=== PATIENT | female | born 1975 | race Caucasian/White ===

== ENCOUNTER → 2017-01-23 | Outpatient (CLI) | payer BC ==
--- NOTE | 2017-01-25 08:29 | MM ---
Reason for exam: screening (asymptomatic). Last mammogram was performed 3 years and 8 months ago. History: Left U/S Cancelled VAD Biopsy of both breasts, June 09, 2013. Physical Findings: A clinical breast exam by your physician is recommended on an annual basis and results should be correlated with mammographic findings. MG Screening Mammo w CAD Bilateral CC and MLO view(s) were taken. Prior study comparison: May 22, 2013, CAD bilateral diagnostic mammogram. December 27, 2011, bilateral digital screening mammo w/CAD. The breast tissue is extremely dense which could obscure a lesion on mammography. No significant changes when compared with prior studies. ASSESSMENT: Negative, BI-RAD 1 RECOMMENDATION: Routine screening mammogram of both breasts in 1 year.
== END | disposition home or self-care (01) ==
LOC: RADMAMWWP 15:51
PROVIDERS: ATTEND Obstetrics & Gynecology
DX: Z12.31 Encounter for screening mammogram for malignant neoplasm of breast (principal)

== ENCOUNTER → 2018-02-27 | Outpatient (CLI) | payer BC ==
--- NOTE | 2018-03-03 08:15 | MM ---
Reason for exam: screening (asymptomatic). Last mammogram was performed 1 year and 1 month ago. History: Left U/S Cancelled VAD Biopsy of both breasts, June 09, 2013. Physical Findings: A clinical breast exam by your physician is recommended on an annual basis and results should be correlated with mammographic findings. MG Screening Mammo w CAD Bilateral CC, MLO, and XCCL view(s) were taken. Prior study comparison: January 23, 2017, bilateral MG screening mammo w CAD. May 22, 2013, CAD bilateral diagnostic mammogram. The breast tissue is extremely dense which could obscure a lesion on mammography. There is no discrete abnormality. ASSESSMENT: Negative, BI-RAD 1 RECOMMENDATION: Routine screening mammogram of both breasts in 1 year.
== END | disposition home or self-care (01) ==
LOC: RADMAMWWP 08:03
PROVIDERS: ATTEND Obstetrics & Gynecology
DX: Z12.31 Encounter for screening mammogram for malignant neoplasm of breast (principal)
CPT/HCPCS: 77067

== ENCOUNTER → 2019-06-23 | Outpatient (CLI) | payer BC ==
--- NOTE | 2019-06-24 11:13 | MM ---
Reason for exam: screening (asymptomatic). Last mammogram was performed 1 year and 4 months ago. History: Left U/S Cancelled VAD Biopsy of both breasts, June 09, 2013. Physical Findings: A clinical breast exam by your physician is recommended on an annual basis and results should be correlated with mammographic findings. MG 3D Screening Mammo W/Cad Bilateral CC and MLO view(s) were taken. Prior study comparison: February 27, 2018, bilateral MG screening mammo w CAD. January 23, 2017, bilateral MG screening mammo w CAD. The breast tissue is extremely dense which could obscure a lesion on mammography. There is no discrete abnormality. ASSESSMENT: Negative, BI-RAD 1 RECOMMENDATION: Routine screening mammogram of both breasts in 1 year.
== END | disposition home or self-care (01) ==
LOC: RADMAMWWP 08:39
PROVIDERS: ATTEND Obstetrics & Gynecology
DX: Z12.31 Encounter for screening mammogram for malignant neoplasm of breast (principal)
CPT/HCPCS: 77063; 77067

== ENCOUNTER → 2021-02-02 | Outpatient (CLI) | payer BC ==
--- NOTE | 2021-02-03 09:06 | MM ---
Reason for exam: screening (asymptomatic). Last mammogram was performed 1 year and 7 months ago. History: Left U/S Cancelled VAD Biopsy of both breasts, June 09, 2013. Cyst aspiration of the left breast, 2000. Physical Findings: A clinical breast exam by your physician is recommended on an annual basis and results should be correlated with mammographic findings. MG 3D Screening Mammo W/Cad Bilateral CC and MLO view(s) were taken. Prior study comparison: June 23, 2019, bilateral MG 3d screening mammo w/cad. February 27, 2018, bilateral MG screening mammo w CAD. The breast tissue is extremely dense which could obscure a lesion on mammography. There is no discrete abnormality. No significant changes when compared with prior studies. ASSESSMENT: Negative, BI-RAD 1 RECOMMENDATION: Routine screening mammogram of both breasts in 1 year.
== END | disposition home or self-care (01) ==
LOC: RADMAMWWP 12:24
PROVIDERS: ATTEND Obstetrics & Gynecology
DX: Z12.31 Encounter for screening mammogram for malignant neoplasm of breast (principal)
CPT/HCPCS: 77063; 77067

== ENCOUNTER → 2021-12-28 | Outpatient (CLI) | payer BC ==
--- NOTE | 2021-12-28 12:44 | XR ---
Lumbar spine HISTORY: Chronic low back pain 3 views the lumbar spine Lumbar vertebral bodies show preserved height, alignment, bone mineralization. There is mild multilev el spondylosis. Suspect L5 is sacralized, there is loss of disc height greatest at L4-5, L2-3 and L1- 2. Sclerosis is present in the posterior elements of the lower lumbar spine. Multilevel Schmorl's nod e formation is suspected. IMPRESSION: Degenerative disc disease and congenital anomaly, facet arthropathy.
== END | disposition home or self-care (01) ==
LOC: RADXRMAIN 11:51
PROVIDERS: ATTEND Family Medicine
DX: M51.36 Other intervertebral disc degeneration, lumbar region (principal); M47.816 Spondylosis without myelopathy or radiculopathy, lumbar region; Q76.49 Other congenital malformations of spine, not associated with scoliosis
CPT/HCPCS: 72100

== ENCOUNTER → 2022-10-11 | Outpatient (CLI) | payer BC ==
--- NOTE | 2022-10-11 10:25 | US ---
EXAMINATION TYPE: US abdomen complete DATE OF EXAM: 10/11/2022 COMPARISON: None CLINICAL HISTORY: R10.00 RUQ PAIN. RUQ pain per patient. TECHNIQUE: Multiple sonographic images of the abdomen are obtained. FINDINGS: EXAM MEASUREMENTS: Liver Length: 15.8 cm Gallbladder Wall: 0.1 cm CBD: 0.5 cm Spleen: 8.6 cm Right Kidney: 11.4 x 5.2 x 3.8 cm Left Kidney: 11.4 x 4.1 x 4.9 cm Pancreas: Tail obscured by overlying bowel gas Liver: wnl Gallbladder: wnl Evidence for sonographic Loyd's sign: neg CBD: wnl Spleen: wnl Right Kidney: No hydronephrosis or masses seen Left Kidney: No hydronephrosis or masses seen Upper IVC: wnl Abd Aorta: No AAA visualized at time of scan The liver is homogenous. The intrahepatic portion of the IVC and proximal abdominal aorta are within normal limits. There is no evidence of cholelithiasis. Common bile duct is unremarkable. The visu alized portions of the pancreas are homogenous. The spleen is unremarkable. Kidneys are symmetric a nd free of hydronephrosis. No renal lesions are seen. IMPRESSION: No evidence for acute process.
--- NOTE | 2022-10-11 14:25 | MM ---
Reason for Exam: Screening (asymptomatic). Last mammogram was performed 1 year(s) and 9 month(s) ago. Patient History: Menarche at age 17. First Full-Term at age 28. Currently using Hormonal Contraceptives, for 19 years. 2000, Cyst Aspiration on the Left side. 06/09/2013, Bilateral Left U/S Cancelled VAD Biopsy. Last menstrual period: 09/06/2022 Risk Values: Julee 5 year model risk: 0.8%. NCI Lifetime model risk: 9.7%. Prior Study Comparison: 02/27/2018 Bilateral Screening Mammogram, [facility]. 06/23/2019 Bilateral Screening Mammogram, [facility]. 02/02/2021 Bilateral Screening Mammogram, [facility]. Tissue Density: The breast tissue is extremely dense which could obscure a lesion on mammography. Findings: Analyzed By CAD. Benign-appearing bilateral axillary lymph nodes are redemonstrated. Occasional scattered tiny punctate calcification throughout the right breast is noted. Slightly more performed and indistinct grouped calcifications in the middle to posterior depth central right breast on CC view only warrant follow-up. Overall Assessment: Incomplete: need additional imaging evaluation, BI-RAD 0 Management: Special View Mammogram of the right breast. Return for spot magnification views right breast and true lateral view. Electronically signed and approved by: Raphael Baker M.D.
== END | disposition home or self-care (01) ==
LOC: RADMAMWWP 08:31
PROVIDERS: ATTEND Family Medicine
DX: Z12.31 Encounter for screening mammogram for malignant neoplasm of breast (principal); R10.11 Right upper quadrant pain
CPT/HCPCS: 76700; 77063; 77067

== ENCOUNTER → 2023-03-21 | Outpatient (CLI) | payer BC ==
--- NOTE | 2023-03-21 11:11 | MM ---
Reason for Exam: Follow-up at short interval from prior study. Last screening mammogram was performed 5 month(s) ago. Patient History: Menarche at age 17. First Full-Term at age 28. Premenopausal. Currently using Hormonal Contraceptives, for 19 years. 2000, Cyst Aspiration on the Left side. 06/09/2013, Bilateral Left U/S Cancelled VAD Biopsy. Last menstrual period: 03/04/2023 Risk Values: Julee 5 year model risk: 0.9%. NCI Lifetime model risk: 9.6%. Prior Study Comparison: 02/02/2021 Bilateral Screening Mammogram, [facility]. 10/11/2022 Bilateral MG 3D screening mammo w/cad, [facility]. 10/15/2022 Right MG 3D work up w/cad RT, [facility]. Tissue Density: Right: The breast tissue is heterogeneously dense. This may lower the sensitivity of mammography. Findings: Analyzed By CAD. A feeding spine calcifications posterior central right cc view now. Solitary and more well-defined round and benign calcification. A few benign milk of calcium calcifications superiorly on the lateral view are redemonstrated. There are areas of asymmetric density which does not persist on 3-D images. Overall Assessment: Benign, BI-RAD 2 Management: Screening Mammogram of both breasts in 6 months. . Results were given to the patient verbally at the time of exam. Patient should continue monthly self-breast exams. A clinical breast exam by your physician is recommended on an annual basis. This exam should not preclude additional follow-up of suspicious palpable abnormalities. Note on Julee scores and lifetime risk: 1. A Julee score greater than 3% is considered moderate risk. If this is the case, consider specialist referral to assess eligibility for a risk reducing agent. 2. If overall lifetime risk for the development of breast cancer is 20% or higher, the patient may qualify for future screening with alternating mammogram and breast MRI. Electronically signed and approved by: Pj Mireles M.D. Radiologist
== END | disposition home or self-care (01) ==
LOC: RADMAMWWP 10:38
PROVIDERS: ATTEND Family Medicine
DX: R92.8 Other abnormal and inconclusive findings on diagnostic imaging of breast (principal)
CPT/HCPCS: 77061; 77065

== ENCOUNTER → 2023-10-17 | Outpatient (CLI) | payer BC ==
--- NOTE | 2023-10-18 12:28 | MM ---
Reason for Exam: Screening (asymptomatic). Last screening mammogram was performed 12 month(s) ago. Patient History: Menarche at age 17. First Full-Term at age 28. Premenopausal. Currently using Hormonal Contraceptives, for 19 years. 2000, Cyst Aspiration on the Left side. 06/09/2013, Bilateral Left U/S Cancelled VAD Biopsy. Risk Values: Julee 5 year model risk: 0.9%. NCI Lifetime model risk: 9.6%. Prior Study Comparison: 10/11/2022 Bilateral MG 3D screening mammo w/cad, [facility]. 10/15/2022 Right MG 3D work up w/cad RT, [facility]. 03/21/2023 Right MG 3D diag mammo w/cad RT, [facility]. Tissue Density: The breast tissue is extremely dense which could obscure a lesion on mammography. Findings: Analyzed By CAD. There is a 8 mm nodule in the superior margin of the right breast not seen on the cc view. This is a anterior to benign-appearing lymph nodes. Recommend spot compression view and true lateral with ex cc mL. Benign calcifications. Overall Assessment: Incomplete: need additional imaging evaluation, BI-RAD 0 Management: Special View Mammogram of the right breast. . Patient should continue monthly self-breast exams. A clinical breast exam by your physician is recommended on an annual basis. This exam should not preclude additional follow-up of suspicious palpable abnormalities. Note on Julee scores and lifetime risk: 1. A Julee score greater than 3% is considered moderate risk. If this is the case, consider specialist referral to assess eligibility for a risk reducing agent. 2. If overall lifetime risk for the development of breast cancer is 20% or higher, the patient may qualify for future screening with alternating mammogram and breast MRI. Electronically signed and approved by: Gustavo Escobar M.D. Radiologis
== END | disposition home or self-care (01) ==
LOC: RADMAMWWP 10-01 07:47
PROVIDERS: ATTEND Family Medicine
DX: Z12.31 Encounter for screening mammogram for malignant neoplasm of breast (principal)
CPT/HCPCS: 77063; 77067

== ENCOUNTER → 2023-10-22 | Outpatient (CLI) | payer BC ==
--- NOTE | 2023-10-22 09:29 | MM ---
Reason for Exam: Additional evaluation requested from abnormal screening. Last screening mammogram was performed less than 1 month ago. Patient History: Menarche at age 17. First Full-Term at age 28. Premenopausal. Currently using Hormonal Contraceptives, for 19 years. 2000, Cyst Aspiration on the Left side. 06/09/2013, Bilateral Left U/S Cancelled VAD Biopsy. Risk Values: Julee 5 year model risk: 0.9%. NCI Lifetime model risk: 9.6%. Prior Study Comparison: 05/22/2013 Left Diagnostic Ultrasound, [facility]. 11/23/2013 Left Diagnostic Ultrasound, [facility]. 01/23/2017 Bilateral Screening Mammogram, [facility]. 02/27/2018 Bilateral Screening Mammogram, [facility]. 06/23/2019 Bilateral Screening Mammogram, [facility]. 02/02/2021 Bilateral Screening Mammogram, [facility]. 10/11/2022 Bilateral MG 3D screening mammo w/cad, [facility]. 10/15/2022 Right MG 3D work up w/cad RT, [facility]. 03/21/2023 Right MG 3D diag mammo w/cad RT, [facility]. 10/17/2023 Bilateral MG 3D screening mammo w/cad, [facility]. Tissue Density: Right: The breast tissue is extremely dense which could obscure a lesion on mammography. Findings: Analyzed By CAD. The questioned area of nodularity far posterior superior aspect on the MLO view does not persist on additional views. Overall Assessment: Benign, BI-RAD 2 Management: Screening Mammogram of both breasts in 1 year. . Results were given to the patient verbally at the time of exam. Patient should continue monthly self-breast exams. A clinical breast exam by your physician is recommended on an annual basis. This exam should not preclude additional follow-up of suspicious palpable abnormalities. Note on Julee scores and lifetime risk: 1. A Julee score greater than 3% is considered moderate risk. If this is the case, consider specialist referral to assess eligibility for a risk reducing agent. 2. If overall lifetime risk for the development of breast cancer is 20% or higher, the patient may qualify for future screening with alternating mammogram and breast MRI. Electronically signed and approved by: Pj Mireles M.D. Radiologist
== END | disposition home or self-care (01) ==
LOC: RADMAMWWP 08:44
PROVIDERS: ATTEND Family Medicine
DX: R92.8 Other abnormal and inconclusive findings on diagnostic imaging of breast (principal)
CPT/HCPCS: 77061; 77065

== ENCOUNTER → 2024-06-29 | Outpatient (CLI) | payer BC ==
--- NOTE | 2024-06-29 09:34 | NM ---
EXAMINATION TYPE: NM hepatobiliary w EF DATE OF EXAM: 06/29/2024 COMPARISON: NONE CLINICAL INDICATION: Female, 48 years old with history of K80.50 BILIARY COLIC; TECHNIQUE: After the intravenous administration of 5.4 mCi Tc 99m Mebrofenin hepatobiliary scintigrap hy is performed. Immediate images post injection. FINDINGS: There is satisfactory initial accumulation of tracer by the liver. The gallbladder is visualized wit hin 12 minutes. The small bowel activity is noted faintly within 48 minutes. At one hour 8 ounces o f oral ensure plus is given to mimic CCK and gallbladder ejection fraction is calculated at 85 %. IMPRESSION: 1. No scintigraphic evidence for acute/chronic cholecystitis or biliary dyskinesia. 2. Increased gallbladder ejection fraction at 85% may be seen with gallbladder hyperkinesis. [facility], , 06/29/2024 9:31 AM
== END | disposition home or self-care (01) ==
LOC: RADNMMAIN 06:38
PROVIDERS: ATTEND Family Medicine
DX: K80.50 Calculus of bile duct without cholangitis or cholecystitis without obstruction (principal)
CPT/HCPCS: 78226

== ENCOUNTER → 2024-11-13 | Outpatient (CLI) | payer BC ==
--- NOTE | 2024-11-13 16:53 | MM ---
Reason for Exam: Screening (asymptomatic). Last mammogram was performed 1 year(s) and 1 month(s) ago. Patient History: Menarche at age 17. First Full-Term at age 28. Premenopausal. Currently using Hormonal Contraceptives, for 19 years. 2000, Cyst Aspiration on the Left side. 06/09/2013, Bilateral Left U/S Cancelled VAD Biopsy. Last menstrual period: 10/21/2024 Risk Values: Julee 5 year model risk: 0.9%. NCI Lifetime model risk: 9.5%. Prior Study Comparison: 03/21/2023 Right MG 3D diag mammo w/cad RT, [facility]. 10/17/2023 Bilateral MG 3D screening mammo w/cad, [facility]. 10/22/2023 Right MG 3D work up w/cad RT, [facility]. Tissue Density: The breasts are extremely dense, which lowers the sensitivity of mammography. Findings: Analyzed By CAD. Asymmetric density posterior outer right cc view is more defined and incompletely disperses on 3-D images. This may represent superimposition shadow but further evaluation is recommended. Otherwise, no significant change. Overall Assessment: Incomplete: need additional imaging evaluation, BI-RAD 0 Management: Special View Mammogram of the right breast. [facility] will attempt to contact patient to return for supplemental views and ultrasound if indicated. [facility], , 11/13/2024 4:50 PM. Electronically signed and approved by: Pj Mireles M.D. Radiologist
== END | disposition home or self-care (01) ==
LOC: RADMAMWWP 16:23
PROVIDERS: ATTEND Obstetrics & Gynecology
DX: Z12.31 Encounter for screening mammogram for malignant neoplasm of breast (principal); R92.343 Mammographic extreme density, bilateral breasts; Z79.3 Long term (current) use of hormonal contraceptives
CPT/HCPCS: 77063; 77067

== ENCOUNTER → 2024-11-18 | Outpatient (CLI) | payer BC ==
--- NOTE | 2024-11-18 12:56 | MM ---
Reason for Exam: Additional evaluation requested from abnormal screening. Last screening mammogram was performed less than 1 month ago. Patient History: Menarche at age 17. First Full-Term at age 28. Premenopausal. Currently using Hormonal Contraceptives, for 19 years. 2000, Cyst Aspiration on the Left side. 06/09/2013, Bilateral Left U/S Cancelled VAD Biopsy. Risk Values: Julee 5 year model risk: 0.9%. NCI Lifetime model risk: 9.5%. Prior Study Comparison: 03/21/2023 Right MG 3D diag mammo w/cad RT, [facility]. 10/17/2023 Bilateral MG 3D screening mammo w/cad, [facility]. 10/22/2023 Right MG 3D work up w/cad RT, [facility]. 11/13/2024 Bilateral MG 3D screening mammo w/cad, [facility]. Tissue Density: Right: The breasts are extremely dense, which lowers the sensitivity of mammography. Findings: Analyzed By CAD. Asymmetric density right breast appears less conspicuous on additional images obtained. Precautionary six-month follow-up is advised. Overall Assessment: Probably benign, BI-RAD 3 Management: Diagnostic Mammogram of the left breast in 6 months. . Results were given to the patient verbally at the time of exam. Patient should continue monthly self-breast exams. A clinical breast exam by your physician is recommended on an annual basis. This exam should not preclude additional follow-up of suspicious palpable abnormalities. Note on Julee scores and lifetime risk: 1. A Julee score greater than 3% is considered moderate risk. If this is the case, consider specialist referral to assess eligibility for a risk reducing agent. 2. If overall lifetime risk for the development of breast cancer is 20% or higher, the patient may qualify for future screening with alternating mammogram and breast MRI. [facility], , 11/18/2024 12:53 PM. Electronically signed and approved by: Juancho Alvarado M.D. Radiologis
== END | disposition home or self-care (01) ==
LOC: RADMAMWWP 12:31
PROVIDERS: ATTEND Obstetrics & Gynecology
DX: R92.8 Other abnormal and inconclusive findings on diagnostic imaging of breast (principal); R92.341 Mammographic extreme density, right breast
CPT/HCPCS: 77061; 77065